=== PATIENT | male | born 1975 | race Caucasian/White ===

== ENCOUNTER 2019-10-16 12:58 | Inpatient (IN) | payer BC, OTHER, SELFPAY ==
[~2019-10-16] VITALS: Ht 167.6 cm; Wt 90.7 kg
[~2019-10-16 12:58] MED LIST: [UNRECOGNIZED DRUG - REMARK]
--- NOTE | 2019-10-16 12:59 | NUR ---
PT GARETH BLS TO ER BED 09.
[2019-10-16 13:02] VITALS: BP 128/50
--- NOTE | 2019-10-16 13:18 | NUR ---
c/o syncope while squatted and stood up fast--- adds n/v/d, cough, fever, bodyaches x3 days---
--- NOTE | 2019-10-16 13:34 | NUR ---
PT COMFORTABLE IN BED SIDE RAILS UP X1 AND LOCK.
--- NOTE | 2019-10-16 14:00 | NUR ---
COVID SWAB DONE AND URINE COLLECTED BUSINESS SERVICES ASSOCIATE INFORMED AND AWARE.
--- NOTE | 2019-10-16 14:04 | NUR ---
DR CANALES AT BEDSIDE EVALUATING PT.
[2019-10-16] MEDS ORDERED: NACL 0.9% 1,000 ML IV ONE (14:14)
[2019-10-16] MEDS ORDERED: FAMOTIDINE 20 MG TAB PO ONE (14:15)
--- NOTE | 2019-10-16 14:37 | NUR ---
pt comfortable in bed ,no complaint , side rails up and lock at lowest position.
--- NOTE | 2019-10-16 14:44 | NUR ---
pt to ct scan via [place] pt aox4 with stable vs.
--- NOTE | 2019-10-16 14:55 | NUR ---
pt back from [facility] via [place]
[2019-10-16 15:06] LABS: BASOPHILS # (AUTO) 0.1 K/uL (0.00-0.22); BASOPHILS % (AUTO) 1.6 % (0.0-2.0); EOSINOPHILS % (AUTO) 0.3 % (0.0-4.0); HEMATOCRIT 45.2 % (36-52); HEMOGLOBIN 15.2 g/dL (12.0-18.0); LYMPHOCYTES # (AUTO) 0.7 K/uL (2.0-11.5); LYMPHOCYTES % (AUTO) 13.7 % (20.5-51.1); MEAN CORPUSCULAR HEMOGLOBIN 32 pg (27-31); MEAN CORPUSCULAR HGB CONC 34 g/dL (33-37); MEAN CORPUSCULAR VOLUME 93.6 fL (80-94); MONOCYTES # (AUTO) 0.8 K/uL (0.8-1.0); NEUTROPHILS # (AUTO) 3.6 K/uL (1.8-7.7); NEUTROPHILS % (AUTO) 69.4 % (42.2-75.2); PLATELET COUNT (AUTO) 161 K/uL (140-450); RED BLOOD CELL COUNT(AUTO) 4.83 MIL/uL (4.20-6.10); RED CELL DISTRIBUTION WIDTH 12.8 % (11.6-13.7); WHITE BLOOD COUNT (AUTO) 5.2 K/uL (4.8-10.8)
[2019-10-16 15:08] LABS: APPEARANCE,URINE CLEAR (CLEAR); BILIRUBIN,URINE NEGATIVE (NEGATIVE); BLOOD, URINE NEGATIVE (NEGATIVE); COLOR,URINE YELLOW (YELLOW); LEUKOCYTE ESTERASE ,URINE NEGATIVE (NEGATIVE); NITRITE, URINE NEGATIVE (NEGATIVE); UGLUCOSE NEGATIVE (NEGATIVE)
[2019-10-16 15:22] LABS: BARBITURATE, URINE NEGATIVE ng/ml (NEG <=200); BENZODIAZEPINE, URINE NEGATIVE ng/mL (NEG <=200); CANNABINOID, URINE NEGATIVE ng/mL (NEG <=50); COCAINE, URINE NEGATIVE ng/mL (NEG <=300); OPIATE, URINE NEGATIVE ng/mL (NEG <=2000); PHENCYCLIDINE SCREEN,URINE NEGATIVE ng/mL (NEG <=25)
[2019-10-16] MEDS ORDERED: NACL 0.9% 1,000 ML IV SCH (15:31)
[2019-10-16 15:34] LABS: PROTHROMBIN TIME 9.9 secs (10.8-13.4)
[2019-10-16] MEDS ORDERED: ONDANSETRON 4 MG/2 ML VIAL IVP PRN ×2 (15:35→15:50)
[2019-10-16] MEDS ORDERED: HYDROcodone/APAP 5/325 MG 1 TAB TAB PO PRN (15:35)
[2019-10-16] MEDS ORDERED: ACETAMINOPHEN 325 MG TAB PO PRN (15:35)
[2019-10-16 15:37] LABS: ALBUMIN 3.6 g/dL (3.4-5.0); ANION GAP 13.3 (8-16); CARBON DIOXIDE 26.9 mmol/L (21-32); CREATININE 1.1 mg/dL (0.6-1.3); POTASSIUM 4.2 mmol/L (3.5-5.1); TOTAL BILIRUBIN 0.5 mg/dL (0.0-1.0)
[2019-10-16] MEDS: NACL 0.9% 1,000 ML IV SCH (15:47)
--- NOTE | 2019-10-16 15:53 | NUR ---
pt sitting on bed snacking.
[2019-10-16] MEDS ORDERED: MECLIZINE 25 MG TAB PO PRN (16:15)
[2019-10-16 16:22] LABS: FREE T4 (FREE THYROXINE) 0.87 ng/dL (0.76-1.46); MAGNESIUM 1.9 mg/dL (1.8-2.4); PHOSPHORUS 3.4 mg/dL (2.5-4.9); THYROID STIMULATING HORMONE 2.05 uIU/mL (0.34-3.74)
[2019-10-16 16:23] LABS: D-DIMER < 100 ng/ml (0-400)
[2019-10-16 16:50] VITALS: BP 138/69
--- NOTE | 2019-10-16 16:50 | NUR ---
Patient will be admitted to care of dr thorne. Admited to mst. Will go to room 118. Belongings list completed. Report to katie shields.
--- NOTE | 2019-10-16 16:50 | NUR ---
RECEIVED PATIENT FROM ED NURSE FOR ADMISSION AND CONTINUITY OF CARE VIA [facility]. PATIENT AMBULATED TO THE ROOM AND BED. DENIES DIZZINESS AT THIS MOMENT. AAOX4. ALBANIAN SPEAKING. RESPIRATIONS EVEN AND UNLABORED, ROOM AIR. PUI FOR COVID-19. VISIBLE CHEST RISE AND FALL NOTED. ON TELE MONITORING. ABDOMEN SOFT AND NONTENDER. SKIN WARM AND DRY. 2.9 X 2.5 HEMATOMA FROM FALL EARLIER TODAY. PATIENT DENIES PAIN IN THE AREA. IV IN THE RIGHT FA, RUNNING NS AT 60 ML/HR FROM ED. IVF RUNNING WELL. PATIENT IS FALL PRECAUTION D/T DX OF DIZZINESS. DROPLET PRECAUTION R/O COVID-19. WILL CONTINUE TO MONITOR.
--- NOTE | 2019-10-16 17:00 | NUR ---
[facility] NARES SWAB COLLECTED. VS: BP:138/69, HR 83, O2SAT 99% RA, TEMP 98.9, RESP 18 UNLABORED. DENIES PAIN. DENIES SOB. DENIES DIZZINESS. MULTIMEDIA DESIGNER AT BEDSIDE CHANGING PATIENT TO YELLOW GOWN, SOCKS. ORIENTED PATIENT TO CALL LIGHT, RESTROOM, BED, AND TV. PATIENT VERBALIZED UNDERSTANDING.
--- NOTE | 2019-10-16 17:10 | NUR ---
PICTURE OF THE HEAD HEMATOMA TAKEN. RED IN COLOR. 2.7 X 2.5. DENIES PAIN IN THE AREA.
--- NOTE | 2019-10-16 17:52 | NUR ---
HUNG NS AT A RATE OF 100 ML/HR PER MD ORDER
--- NOTE | 2019-10-16 19:00 | NUR ---
REPORT GIVEN TO DAIRY TECHNICIAN NURSE. PATIENT RESTING IN BED IN NO S/S OF RESPIRATORY DISTRESS, NO COMPLAINTS OF PAIN. ALL NEEDS MET, CALL LIGHT WITHIN REACH.
--- NOTE | 2019-10-16 19:05 | NUR ---
RECEIVED PT FROM AM SHIFT NURSE. AOX4. PATIENT HAS NO RESPIRATORY DISTRESS. NO COMPLAINTS OF PAIN. INFUSING NS AT 100ML/HR, IV SITE AT RIGHT HAND 20 G[address] DROPLET ISOLATION IN PLACE. BED ON LOW POSITION, SIDE RAILS UP X2, CALL LIGHT WITHIN REACH. WILL CONTINUE TO MONITOR.
[2019-10-16 20:00] VITALS: BP 125/67
[2019-10-16] MEDS: DOCUSATE SODIUM 100 MG GELCAP PO SCH (20:52)
--- NOTE | 2019-10-16 21:00 | NUR ---
PT VS STABLE. ADMINISTERED COLACE. PATIENT MEDICATION EDUCATION GIVEN. PT VERBALIZED UNDERSTANDING. ABLE TO MAKE NEEDS KNOWN. WILL CONTINUE TO MONITOR.
[2019-10-16] MEDS: ACETAMINOPHEN 325 MG TAB PO PRN (23:00)
--- NOTE | 2019-10-16 23:08 | NUR ---
PT TEMPERATURE 102.5. ADMINISTERED TYLENOL, INCREASED AC, ICE PACKS UNDER THE ARMPIT, REMOVED BLANKET. WILL CONTINUE TO MONITOR.
[2019-10-17] VITALS: BP 126/64
--- NOTE | 2019-10-17 00:46 | NUR ---
PT TEMPERATURE 100.4. WILL CONTINUE WITH COOLING MEASURES. WILL CONTINUE TO MONITOR.
[2019-10-17] MEDS: NACL 0.9% 1,000 ML IV SCH ×3 (02:06→21:47)
[2019-10-17 04:00] VITALS: BP 123/66
--- NOTE | 2019-10-17 04:00 | NUR ---
PT TEMPERATURE 98.8. VS STABLE. WILL CONTINUE TO MONITOR. CALL LIGHT WITHIN REACH.
--- NOTE | 2019-10-17 06:27 | NUR ---
PT ASLEEP AND RESTING IN BED. AROUSABLE TO NAME AND LIGHT TOUCH. NO S/S OF RESPIRATORY DISTRESS. NO COMPLAINTS OF PAIN. CALL LIGHTS WITHIN REACH.
[2019-10-17 07:15] VITALS: BP 118/60
--- NOTE | 2019-10-17 07:15 | NUR ---
ORTHOSTATIC BP: SUPINE BP 118/60 HR 71, SITTING BP 103/77 HR 80, STANDING 116/70 HR 78
[2019-10-17 07:20] VITALS: BP 103/77
--- NOTE | 2019-10-17 07:25 | NUR ---
GAVE BEDSIDE REPORT TO DAY RN. PT ENDORSED IN STABLE CONDITION. CALL LIGHT WITHIN REACH.
--- NOTE | 2019-10-17 07:26 | NUR ---
RECEIVED REPORT FROM INSPECTOR AGRICULTURAL COMMODITIES RN FOR CONTINUITY OF CARE. PT IS AAOX4, COOPERATIVE AND ABLE TO MAKE NEEDS KNOWN. PT SKIN INTACT BUT PT HAS HEMATOMA NOTED TO THE LEFT SIDE TO THE POSTERIOR PART OF HIS HEAD. PICTURES IN CHART NAD DOCUMENTED. PT ABLE TO AMBULATE BUT TOLD TO CALL FOR ASSISTANCE DUE TO SYNCOPE EPISODES. PT HAS RIGHT HAND 20G INFUSING NS @ 100ML/HR. DISCUSSED POC WITH PT NAD PT VERBALIZED UNDERSTANDING .ALL NEEDS CURRENTLY MET. WILL ROUND FREQUENTLY ON PT THROUGHOUT THE SHIFT.
[2019-10-17 07:28] VITALS: BP 116/70
[2019-10-17 07:38] LABS: BASOPHILS % (AUTO) 0.2 % (0.0-2.0); EOSINOPHILS % (AUTO) 0.1 % (0.0-4.0); HEMATOCRIT 44.2 % (36-52); HEMOGLOBIN 15.1 g/dL (12.0-18.0); LYMPHOCYTES # (AUTO) 1.2 K/uL (2.0-11.5); LYMPHOCYTES % (AUTO) 27.4 % (20.5-51.1); MEAN CORPUSCULAR HEMOGLOBIN 32 pg (27-31); MEAN CORPUSCULAR HGB CONC 34 g/dL (33-37); MEAN CORPUSCULAR VOLUME 93.5 fL (80-94); MONOCYTES # (AUTO) 0.5 K/uL (0.8-1.0); MONOCYTES % (AUTO) 11.9 % (1.7-9.3); NEUTROPHILS # (AUTO) 2.7 K/uL (1.8-7.7); NEUTROPHILS % (AUTO) 60.4 % (42.2-75.2); PLATELET COUNT (AUTO) 155 K/uL (140-450); RED BLOOD CELL COUNT(AUTO) 4.73 MIL/uL (4.20-6.10); RED CELL DISTRIBUTION WIDTH 12.8 % (11.6-13.7); WHITE BLOOD COUNT (AUTO) 4.5 K/uL (4.8-10.8)
[2019-10-17 07:43] LABS: ANION GAP 10.7 (8-16); POTASSIUM 3.7 mmol/L (3.5-5.1)
[2019-10-17 07:50] LABS: CHOL/HDL RATIO 4.1 (1-4.5); MAGNESIUM 2.1 mg/dL (1.8-2.4); PHOSPHORUS 3.3 mg/dL (2.5-4.9)
[2019-10-17 08:00] VITALS: BP 123/68
[2019-10-17] MEDS: DOCUSATE SODIUM 100 MG GELCAP PO SCH ×2 (09:00→21:00)
--- NOTE | 2019-10-17 09:00 | NUR ---
PATIENT HAS BEEN SCREENED AND CATEGORIZED MODERATE NUTRITION RISK. PATIENT WILL BE SEEN WITHIN 3-5 DAYS OF ADMISSION. 10/19/19 10/21/[address]
--- NOTE | 2019-10-17 10:02 | NUR ---
PT RESTING IN BED. ALL NEEDS MET.
--- NOTE | 2019-10-17 12:41 | NUR ---
PT ASKING TO GO HOME. EXPLAINED TO PT THAT HE NEEDS TO BE FEVER FREE FOR 24HRS AND THEN HE CAN BE D/C.
--- NOTE | 2019-10-17 14:46 | NUR ---
DC PLANN[age] YRS OLD MALE PATIENT WAS ADMITTED FROM HOME WITH A DX OF SYNCOPE. PT HAS A HX OF HTN, CT HEAD NEGATIVE ,CXRAY NEGATIVE , CAROTID DOPPLER ULTRASOUND NEGATIVE . COVID TEST PENDING. STARTED ON IVF , CONTINUE HOME MEDS. DC PLANNING TO GO HOME WHEN STABLE CM TO FOLLOW. Addendum: 10/17/19 at 1529 by Teagan Moreno CM DC PLANNING: CALLED [facility] [phone] SPOKE WITH ANTIONETTE , LASHAY ARGUETA IS RESPONSIBLE FOR HOSPITAL STAY REQUESTED ALL THE CLINICALS TO BE FAXED TO [phone] AND ALL PAPER WORK FAXED.
[2019-10-17] MEDS: DEXAMETHASONE 4 MG TAB PO SCH (16:30)
[2019-10-17] MEDS ORDERED: AZITHROMYCIN 250 MG TAB PO SCH (16:38)
--- NOTE | 2019-10-17 17:29 | NUR ---
PT REFUSING DECADRON, ZITHROMAX, AND ROCEPHIN AT THIS TIME. PT STATES HE DOES NOT WANT OT TAKE ANY MEDS COVID MEDS UNTIL HIS RESULT COMES BACK. AWARE.
--- NOTE | 2019-10-17 18:35 | NUR ---
PT ASLEEP. ALL NEEDS MET
--- NOTE | 2019-10-17 19:03 | NUR ---
WILL ENDORSE TO MARBLE FINISHER FOR CONTINUITY OF CARE. PT IN STABLE CONDITION AT THIS TIME.
--- NOTE | 2019-10-17 19:10 | NUR ---
RECEIVED ENDORSEMENT FROM AM SHIFT RN. PATIENT IS LYING IN BED, ON SEMI FOWLERS POSITION. NO SOB. ON ROOM AIR. NOTED RIGHT HAND 22G, INTACT INFUSING NS AT 100CC/HR. NOTED POSTERIOR LEFT SIDE OF THE HEAD ABRASION. NO BLEEDING NOTED. ASSESSMENT DONE. DROPLET ISOLATION OBSERVED. LOW BED IN PLACE. PLAN OF CARE WAS DISCUSSED. CALL LIGHT WITHIN REACH. WILL CONTINUE TO MONITOR.
[2019-10-17] MEDS: ACETAMINOPHEN 325 MG TAB PO PRN (19:59)
--- NOTE | 2019-10-17 19:59 | NUR ---
PATIENT C/O BACK PAIN 06/24. REPOSITIONED. TYLENOL PO GIVEN PER PATIENT REQUEST.
--- NOTE | 2019-10-17 20:59 | NUR ---
PATIENT IS RESTING. DENIES PAIN. NO SOB.
--- NOTE | 2019-10-17 21:00 | NUR ---
COLACE PO WAS REFUSED BY PATIENT. PATIENT SAID HE ALREADY HAD A BM.
[2019-10-18] VITALS: BP 120/61
[2019-10-18] MEDS: NACL 0.9% 1,000 ML IV SCH (00:12)
--- NOTE | 2019-10-18 00:12 | NUR ---
HANGED A NEW BAG OF NS 1000ML AT 100CC/HR. INFUSING WELL.
[2019-10-18] MEDS: ACETAMINOPHEN 325 MG TAB PO PRN ×2 (02:44→08:22)
--- NOTE | 2019-10-18 02:44 | NUR ---
PATIENT C/O BACK PAIN 06/24. REPOSITIONED. TYLENOL GIVEN ORDERED.
--- NOTE | 2019-10-18 03:44 | NUR ---
PATIENT IS ASLEEP. NO PAIN NOTED
--- NOTE | 2019-10-18 06:45 | NUR ---
PATIENT IS NOT IN ANY DISTRESS. WILL ENDORSE TO AM SHIFT RN FOR CONTINUITY OF CARE.
--- NOTE | 2019-10-18 07:00 | NUR ---
RECEIVED BEDSIDE SHIFT REPORT FROM WILDLIFE FORENSIC GENETICIST RN, SEBAS, FOR CONTINUITY OF CARE. PATIENT IS LYING IN BED, ON SEMI FOWLERS POSITION. NO SOB. ON ROOM AIR. NOTED RIGHT HAND 22G, INTACT INFUSING NS AT 100CC/HR. NOTED POSTERIOR LEFT SIDE OF THE HEAD ABRASION. NO BLEEDING NOTED. DROPLET ISOLATION OBSERVED. LOW BED IN PLACE. PLAN OF CARE WAS DISCUSSED, PATIENT VERBALIZES UNDERSTANDING. CALL LIGHT WITHIN REACH. WILL CONTINUE TO MONITOR.
[2019-10-18 07:21] LABS: BASOPHILS % (AUTO) 0.6 % (0.0-2.0); HEMATOCRIT 42.5 % (36-52); HEMOGLOBIN 14.4 g/dL (12.0-18.0); LYMPHOCYTES % (AUTO) 25.8 % (20.5-51.1); MEAN CORPUSCULAR HEMOGLOBIN 32 pg (27-31); MEAN CORPUSCULAR HGB CONC 34 g/dL (33-37); MEAN CORPUSCULAR VOLUME 93.4 fL (80-94); MONOCYTES # (AUTO) 0.4 K/uL (0.8-1.0); MONOCYTES % (AUTO) 9.2 % (1.7-9.3); NEUTROPHILS # (AUTO) 2.6 K/uL (1.8-7.7); NEUTROPHILS % (AUTO) 64.4 % (42.2-75.2); PLATELET COUNT (AUTO) 132 K/uL (140-450); RED BLOOD CELL COUNT(AUTO) 4.56 MIL/uL (4.20-6.10); RED CELL DISTRIBUTION WIDTH 12.5 % (11.6-13.7)
[2019-10-18 07:43] LABS: ANION GAP 11.7 (8-16); CARBON DIOXIDE 28.2 mmol/L (21-32); POTASSIUM 3.9 mmol/L (3.5-5.1)
[2019-10-18 07:48] LABS: MAGNESIUM 2.1 mg/dL (1.8-2.4); PHOSPHORUS 3.7 mg/dL (2.5-4.9)
[2019-10-18 08:00] VITALS: BP 143/97
[2019-10-18] MEDS: DEXAMETHASONE 4 MG TAB PO SCH (08:21)
[2019-10-18] MEDS: DOCUSATE SODIUM 100 MG GELCAP PO SCH (08:21)
--- NOTE | 2019-10-18 08:30 | NUR ---
MORNING MEDICATIONS GIVEN. PATIENT COMPLAINS OF TREATMENT IN THE HOSPITAL DURING THE NIGHT AND WISHES TO BE DISCHARGED. DR. PATEL IS AWARE AND WILL SPEAK TO THE PATIENT. WILL CONTINUE TO MONITOR.
[2019-10-18] MEDS ORDERED: AZITHROMYCIN 250 MG TAB PO SCH (09:00)
--- NOTE | 2019-10-18 09:45 | NUR ---
DR. PATEL BY THE BEDSIDE, PATIENT IS AWARE OF COVID + STATUS AND DISCHARGE PLANS FOR TODAY WERE GIVEN. DISCHARGE EDUCATION ABOUT HOME ISOLATION GIVEN BY THE MD. PATIENT VERBALIZES UNDERSTANDING. WILL CONTINUE TO MONITOR.
[2019-10-18] MEDS ORDERED: ASPI-1822 PO (10:01)
[2019-10-18 10:57] VITALS: BP 143/97
--- NOTE | 2019-10-18 11:45 | NUR ---
PATIENT DISCHARGE TO HOME. NO SIGNS OF DISTRESS NOTED. IV SITE AND ARMBANDS REMOVED. INFORMATION ABOUT COVID-19, HOME ISOLATION/ NUTRITION/ 10 WAYS TO MANAGE RESPIRATORY SYMPTOMS, WAS GIVEN. PATIENT VERBALIZES UNDERSTANDING. DISCHARGE TEACHINGS AND HANDOUTS GIVEN, PATIENT VERBALIZES UNDERSTANDING. PATIENT ABLE TO AMBULATE TOWARDS LOBBY.
== END 2019-10-18 11:45 | disposition home or self-care (01) | DRG 179 ==
LOC: MED 12:58 → EEVIPCON 12:58 → MTU 15:55
PROVIDERS: ADMIT General Practice; ATTEND General Practice
DX: U07.1 COVID-19 (principal); I10 Essential (primary) hypertension; S00.03XA Contusion of scalp, initial encounter; W18.30XA Fall on same level, unspecified, initial encounter; E66.9 Obesity, unspecified; G90.8 Other disorders of autonomic nervous system; R73.03 Prediabetes; Y93.89 Activity, other specified; Y92.89 Other specified places as the place of occurrence of the external cause; Y99.8 Other external cause status; Z83.3 Family history of diabetes mellitus; Z82.49 Family history of ischemic heart disease and other diseases of the circulatory system; Z68.32 Body mass index [BMI] 32.0-32.9, adult
CPT/HCPCS: 36415; 70450; 71045; 80048; 80053; 80305; 81003; 82150; 82550; 83036; 83690; 83735; 83880; 84100; 84439; 84443; 84484; 85025; 85379; 85610; 85730; 87081; 87804; 93005; 93880; 99285; J0696; J7030; J7042; J7060; Q0092; U0003-CS